=== PATIENT | female | born 1950 | race Hispanic/Latino ===

== ENCOUNTER → 2022-07-09 | Outpatient (CLI) | payer OTHER | END | disposition home or self-care (01) | LOC: SHCH 09:56 → EDUNIT# 10:20 | PROVIDERS: ATTEND Internal Medicine Cardiovascular Disease | DX: I87.2 Venous insufficiency (chronic) (peripheral) (principal) | CPT/HCPCS: 93970 ==

== ENCOUNTER → 2022-08-19 | Outpatient (CLI) | payer OTHER | END | disposition home or self-care (01) | LOC: RAH 13:39 | PROVIDERS: ATTEND Internal Medicine Cardiovascular Disease | DX: Z13.6 Encounter for screening for cardiovascular disorders (principal) | CPT/HCPCS: 75571 ==

== ENCOUNTER → 2024-10-03 | Outpatient (CLI) | payer OTHER, MEDICARE ==
[2024-10-03] MEDS: REGADENOSON 0.4 MG/5 ML PF SYG IVP ONE (14:23)
== END | disposition home or self-care (01) ==
LOC: SHCH 08:12
PROVIDERS: ATTEND Internal Medicine Cardiovascular Disease
DX: I20.0 Unstable angina (principal); R06.00 Dyspnea, unspecified
CPT/HCPCS: 78452; 93017; J2785; A9500 ×2